=== PATIENT | female | born 1960 | race Caucasian/White ===

== ENCOUNTER 2016-10-11 16:53 | Emergency (ER) | payer OTHER ==
[~2016-10-11] VITALS: Ht 172.7 cm; Wt 86.8 kg
[2016-10-11 16:56] VITALS: BP 140/86; PULSE 95; RESP 20; O2SAT 96
--- NOTE | 2016-10-11 17:31 | ED.REPORT ---
HPI-General Illness Date of Service Oct 11, 2016 ED Provider: Matthieu Crowell PA-C Jewell is a 50-year-old female with chief complaint of blood in her stool. Patient states that when she had a bowel movement today there was a small amount of brownish blood in the stool and on the toilet paper after she wiped. She denies that the toilet water was turned red. She describes her bowel movement has initially firm but then softening, but nonpainful. She states that she had an episode similar to this about 3 months ago. Admits to history of hemorrhoids, endometriosis normal colonoscopy 10 years ago. Denies bleeding/ clotting problems, family history of colon cancer, abdominal pain, vomiting, diarrhea or other complaints. Nursing Notes Stated Complaint: BLOOD IN STOOL Chief Complaint: General Complaint Nursing Notes Reviewed: Yes Allergies: Coded Allergies: ibuprofen (Verified Allergy, 06/22/13) General Time Seen by MD: 17:08 Chief Complaint Blood in stool Past Medical History Past Medical History Notes: DM 2, depression, neuropathy, hyperlipidemia Past Surgical History Tubal ligation, cholecystectomy Review of Systems General: Denies fever, chills, malaise. HEENT: Denies congestion, headache, sore throat. Respiratory: Denies dyspnea, cough, shortness of breath, wheezing. Cardiovascular: Denies chest pain, palpitations. Gastrointestinal: Denies vomiting, diarrhea, abdominal pain. Genitourinary: Denies frequency, urgency, dysuria, hematuria. Otherwise as noted in HPI. Physical Exam General: Well appearing, well developed, well nourished, no acute distress. Head: Atraumatic, normocephalic. Eyes: No scleral icterus or injection. No discharge. Vision grossly intact. ENT: Voice clear, hearing grossly intact. Respiratory: Regular rate and rhythm. Breath sounds present, clear to auscultation and equal bilaterally. Cardiovascular: Regular rate and rhythm, without murmur, gallop or rub. No pedal edema. Gastrointestinal: Obese abdomen, mildly tender in lower quadrants with voluntary guarding. Bowel sounds normoactive. Bilateral bruising at the site of insulin injection. Skin: Warm and dry. Rectal: Neurological: Grossly nonfocal. Psychological: Alert and oriented. Speech appropriate, linear and logical. Behavior appropriate. Vital Signs Vital Signs Date Time Temp Pulse Resp B/P Pulse Ox O2 Delivery O2 Flow Rate FiO2 10/11/16 18:24 36.7 82 18 122/87 95 Room Air 10/11/16 16:56 36.4 95 20 140/86 96 Room Air Initial VS: Reviewed, Vital signs normal Interpretation & Diagnostics Lab Results Interpretation Result Diagram: 10/11/16 1719 10/11/16 1719 Test 10/11/16 17:19 White Blood Count 7.8th/mm3 (3.8-10.1) Red Blood Count 4.49mil/mm3 (3.90-5.20) Hemoglobin 13.3g/dL (12.0-15.6) Hematocrit 39.5% (35.0-46.0) Mean Corpuscular Volume 88.0fL (81-100) Mean Corpuscular Hemoglobin 29.6pg (27.0-35.0) Mean Corpuscular Hemoglobin Concent 33.7% (32.0-37.0) Red Cell Distribution Width 13.2% (12.3-15.4) Platelet Count 194bil/L (150-400) Neutrophils (%) (Auto) 65.4% (40-74) Lymphocytes (%) (Auto) 25.4% (14-46) Monocytes (%) (Auto) 7.7% (4-12) Eosinophils (%) (Auto) 1.0% (0-5) Basophils (%) (Auto) 0.4% (0-3) Sodium Level 138mEq/L (134-144) Potassium Level 4.1mEq/L (3.5-5.2) Chloride Level 98mEq/L (97-108) Carbon Dioxide Level 26mmol/L (18-29) Blood Urea Nitrogen 13mg/dL (6-24) Creatinine 0.47mg/dL (0.57-1.00) Estimat Glomerular Filtration Rate 196mL/min (>59) Glucose Level 269mg/dL (60-99) Calcium Level 9.2mg/dL (8.5-10.1) Total Bilirubin 0.3mg/dL (0.0-1.2) Aspartate Amino Transf (AST/SGOT) 21U/L (0-50) Alanine Aminotransferase (ALT/SGPT) 20U/L (0-32) Alkaline Phosphatase 58U/L (25-150) Total Protein 6.8g/dL (6.4-8.4) Albumin 4.2g/dL (3.4-5.0) Hold Barr Top Tube Received (Received) Re-Eval/Medical Decision Med Decision/Clinical Course 50-year-old female presents with chief complaint of blood in her stool. She states that prior to presentation she noticed brownish blood in her stool as well as on the toilet paper. She says her bowel movement was not painful. She denies abdominal pain and has no other complaints. She had a similar episode approximately 3 months ago. She reports a normal colonoscopy 10 years ago and no family history of colon cancer. Physical exam is reassuring, with some slight lower quadrant tenderness. I performed a rectal exam with a chief of pediatric urology and noted an obvious, nonthrombosed hemorrhoid, good sphincter tone and no masses in the rectum. CBC and CMP are within acceptable limits with the exception of elevated glucose, which I do not believe is contributory. I believe the blood in her stools most likely caused by her hemorrhoids. I prescribed Anusol HC, MiraLAX, increase dietary fiber. I have limited concern for cancer, polyps or diverticulitis, but I did advise primary care follow-up to arrange a screening colonoscopy. Provided return precautions Discharge & Departure Primary Impression: Hemorrhoid Hemorrhoid type: unspecified Qualified Code: K64.9 - Unspecified hemorrhoids Disposition: Home Discharge Condition All VS Reviewed: Yes Condition: Stable Patient Instructions: Hemorrhoids (ED) Additional Instructions: Evaluation for blood in stool. Physical exam reveals a small hemorrhoid at the anus. No masses are felt in the rectum. I believe this is the most likely cause of the blood you noticed in your stool today. However, because ite has been 10 years since your last colonoscopy I recommended to follow-up with your primary care provider in the next week or so to arrange your next colonoscopy. I recommend Anusol HC cream applied 3-4 times a day to the hemorrhoid. A stool softener such as [id number] MiraLAX will limit irritation to the hemorrhoid. I also recommend increasing dietary fiber by eating more fruits and vegetables. Return to emergency department for any new or worsening symptoms including abdominal pain, increased bleeding. Referrals: Tana Damon PA-C (PCP) EDSupervising Provider for APC: Pascual Taylor MD copies to: Tana Damon PA-C, Seth PA-C Oct 11, 2016 17:30
[2016-10-11 17:36] LABS: BASOPHILS % (AUTO) 0.4 % (0-3); MONOCYTES % (AUTO) 7.7 % (4-12); Mean Corpuscular Hemoglobin 29.6 pg (27.0-35.0); NEUTROPHILS % (AUTO) 65.4 % (40-74); Platelet Count 194 bil/L (150-400)
[2016-10-11 18:24] VITALS: BP 122/87; PULSE 82; RESP 18; O2SAT 95
== END 2016-10-11 18:41 | disposition home or self-care (01) ==
LOC: SED 16:53
DX: K64.9 Unspecified hemorrhoids (principal); E11.40 Type 2 diabetes mellitus with diabetic neuropathy, unspecified; E78.5 Hyperlipidemia, unspecified; Z98.51 Tubal ligation status; Z90.49 Acquired absence of other specified parts of digestive tract; Z87.19 Personal history of other diseases of the digestive system; Z88.6 Allergy status to analgesic agent

== ENCOUNTER 2017-03-04 21:12 | Emergency (ER) | payer OTHER ==
[~2017-03-04] VITALS: Ht 172.7 cm; Wt 89.0 kg
[2017-03-04 21:14] VITALS: BP 156/68; PULSE 90; RESP 16; O2SAT 99
--- NOTE | 2017-03-04 21:43 | ED.REPORT ---
HPI-Extremity Problem Lower Date of Service Mar 04, 2017 ED Provider: Angel Lau DO A 56 year old female with a history of diabetes, depression, neuropathy and hyperlipidemia presents to the ED complaining of right toe pain. The pt stubbed her right fourth toe against a shelving unit, resulting in immediate pain. The pt has been experiencing pain and difficulty walking since, and is concerned that the toe may be fractured. Nursing Notes Stated Complaint: RIGHT FOOT/TOE INJURY Chief Complaint: Extremity Trauma Nursing Notes Reviewed: Yes Allergies: Coded Allergies: duloxetine (Unverified Allergy, Unknown, 03/04/17) ibuprofen (Verified Allergy, Unknown, 03/04/17) General Time Seen by MD: 21:43 Chief Complaint Toe injury right 4 Hx Obtained From: Patient Arrived By: Walk-in Onset Occurred: 1 - 4 hours ago Symptom Duration: Since onset Recent Healthcare: No recent hospitalization, Recent doctor visit Similar Sx Previous: No Past Medical History Past Medical History DM 2 depression neuropathy hyperlipidemia Past Surgical History Tubal ligation cholecystectomy hernia Smoking History Unknown if Ever Smoker Ambulatory Status Independent Review of Systems Musculoskeletal: Reports: Extremity pain (right foot), Denies: Neck pain Skin: Denies Rash Complete sys rev & neg: except as marked. Cardiovascular: Denies: Chest pain GI: Denies: Abdominal pain, Vomiting Physical Exam Initial Vital Signs Vital Signs (First) Date Time Temp Pulse Resp B/P Pulse Ox O2 Delivery O2 Flow Rate FiO2 03/04/17 21:14 36 90 16 156/68 99 Initial VS: Reviewed Lower Extremity / Pelvis / MS: Full range of motion, Neurologic intact, Vascular intact Ankle / Foot: Full range of motion, Neurologic intact, Vascular intact tender right fourth toe without deformity General/Constitutional: Awake, Alert Respiratory / Chest: Atraumatic, Breath sounds NL, Breath sounds = bilat, No respiratory distress Cardiovascular: Heart rate NL, Regular rhythm, Heart sounds NL Skin: Atraumatic, Color NL, No rash, Warm, Dry Neurologic: Oriented X3, Speech NL, No motor deficits, No sensory deficits Head / Eyes: Atraumatic, Normocephalic, PERRL, EOMI ENT: Atraumatic, Airway patent, Mucous membranes moist Neck: Atraumatic, Supple, Full range of motion Abdomen: Atraumatic, Soft, Non-tender Back: Atraumatic, Full range of motion Upper Extremity / MS: Atraumatic, Full range of motion Psychiatric: Affect NL, Mood NL Interpretation & Diagnostics Interpretation & Diagnostics: Right Toe X-Ray: no acute findings Pulse Oximetry Interpretation Pulse Oximetry Interpretation: 99% on room air Pulse Oximetry: Pulse Ox normal Re-Eval/Medical Decision Source of Hx: Old records Re-Evaluation/Progress : Time of Eval: 22:25 Patient Status: Condition improved Re-Evaluation/Progress Note: Pt rechecked, who is comfortable. The diagnosis and plan for discharge are discussed. The pt understands and agrees with the plan. All questions are addressed at this time. Counseled Regarding: Diagnosis, Lab results, Need for follow-up, When/why to return to ED Discharge & Departure Impression: Primary Impression: Toe contusion Encounter type: initial encounter Toe: lesser toe Damage to nail status: without damage Laterality: right Qualified Code: S90.121A - Contusion of right lesser toe(s) without damage to nail, initial encounter Disposition: Home Discharge Condition All VS Reviewed: Yes Condition: Stable Patient Instructions: Contusion in Adults (ED) Additional Instructions: I did not appreciate a fracture on your x-ray. Keep the toes chon taped and wear well-supporting shoes. Take 1 to 2 [place] every 6 hours as needed for severe pain. Do not drink, drive, or consume acetaminophen while taking the [place]. Call your primary care physician in the morning to arrange a follow up appointment in one week. Also arrange follow up with orthopedics (Dr. Vallecillo). If the pain persists, you will need a follow up x-ray. Return to the emergency department if you develop any new or worsening symptoms. Referrals: Tana Damon PA-C (PCP) Jamal Vallecillo MD Attestation Portions of this note were transcribed by [place]. I, Dr. Lau personally performed the history, physical exam and medical decision-making; I reviewed and confirmed the accuracy of the information in the transcribed note. Signed by: Pancho Baltazar, 03/04/2017 and 2238. copies to: Tana Damon PA-C; Jaaml Vallecillo MD, Todd P DO Mar 04, 2017 21:43 [place] Mar 04, 2017 22:07
[2017-03-04] MEDS ORDERED: _HYDROcodone/APAP 5-325 mg Tablet PO PRN (22:30)
[2017-03-04 23:20] VITALS: BP 156/68; PULSE 90; RESP 16; O2SAT 99
--- NOTE | 2017-03-05 08:29 | DRSVH ---
PROCEDURE: X-RAY TOESS, TWO VIEWS INDICATIONS: injury TECHNIQUE: 3 views of the port toe(s) acquired. COMPARISON: None. FINDINGS: Bones: Minimally displaced, transversely oriented fracture extends through the base of the fourth pro ximal phalanx. Soft tissues: No suspicious soft tissue densities. IMPRESSION: Fourth proximal phalangeal fracture. Dictated by: Merlin GIBBS Interpreted: Kevin Calvert MD on 03/05/2017 at 8:27 Transcribed by: MARCOS on 03/05/2017 at 8:28 Approved by: Keivn Calvert M.D. on 03/05/2017 at 10:36
== END 2017-03-04 22:55 | disposition home or self-care (01) ==
LOC: SED 21:12
DX: S90.121A Contusion of right lesser toe(s) without damage to nail, initial encounter (principal); W22.8XXA Striking against or struck by other objects, initial encounter; Y93.9 Activity, unspecified; Y92.9 Unspecified place or not applicable; Y99.9 Unspecified external cause status; E78.5 Hyperlipidemia, unspecified; Z88.6 Allergy status to analgesic agent; E11.43 Type 2 diabetes mellitus with diabetic autonomic (poly)neuropathy